=== PATIENT | female | born 1990 | race Caucasian/White ===

== ENCOUNTER 2021-06-01 09:17 | Day surgery (SDC) | payer OTHER ==
[2021-06-01] VITALS (189 sets, daily range): BP systolic 77–129; BP diastolic 46–108
--- NOTE | 2021-06-01 09:00 | NUR ---
PATIENT AMBULATORY TO ROOM CONSENT OBTAINED. VITAL SIGNS OBTAINED. DR GERRADO NOTIFIED. NEW ORDERS RECEIVED. ADMISSION ASSESSMENT COMPLETED AT THIS TIME. IV ESTABLISHED. ORIENTED TO ROOM AND UNIT, call light in reach. will continue to monitor.
[2021-06-01 09:42] LABS: HEMATOCRIT 39.4 % (37.0-47.0); HEMOGLOBIN 12.9 g/dl (12.0-16.0); MEAN CELL VOLUME 97.8 fL CALC (80.0-100.0); MEAN CORPUSCULAR HGB CONC 32.7 g/dL CAL (32.0-36.0); NEUT# 1.79 thou/uL (2.00-7.15); RED BLOOD COUNT 4.03 mill/uL (4.20-5.60); RED CELL DISTRI WIDTH 12.8 % (11.5-15.5)
[2021-06-01 09:54] LABS: ALBUMIN 4.2 g/dL (3.2-5.0); ALKALINE PHOSPHATASE 87 u/l (38-126); ANION GAP 13 (6-22 (CALC)); BILIRUBIN, TOTAL 0.3 mg/dL (0.0-1.4); BUN 14 mg/dL (7-17); BUN/CREATININE RATIO 21 (12-20 (CALC)); CARBON DIOXIDE 27 mmol/l (22-30); CHLORIDE 102 mmol/l (95-108); CREATININE 0.7 mg/dL (0.5-1.0); GFR > 60 ML/MIN (>=60 (CALC)); GFR FOR AFR.AMER. > 60 ML/MIN (>=60 (CALC)); POTASSIUM 4.3 mmol/l (3.5-5.1); SGOT/AST 24 u/l (14-36); SODIUM 138 mmol/l (137-146); TOTAL PROTEIN 7.1 g/dL (6.3-8.2)
--- NOTE | 2021-06-01 10:30 | NUR ---
DR GERARDO AT BEDSIDE AT THIS TIME.
--- NOTE | 2021-06-01 11:50 | NUR ---
Induction Note Patient to [facility] procedure room. Time out performed at 1150. Patient placed on monitors, Alejo hugger, bilateral wrist restraints applied for ET tube protection. Versed 5mg given IV push at 1151 Tourniquet applied to RIGHT arm Lidocaine 100mg given at 1152 IV push followed by Rocoronium 10mg at 1152 IV push and held for 90 seconds. Propofol bolus of 150mg given at 1153 IV push. Succinylcholine 80mg given IV push at 1154. Smooth intubation with 7.5 ETT. Positive CO2. Positive Auscultation for air exchange. Patient placed on ventilator for spontaneous ventilation. Placed on Propofol IV drip at 1155. OG inserted. Positive air on auscultation. Positive gastric content. Stomach washed at this time. Naltrexone 75mg given via OG tube with Clonidine 0.2mg given via OG Tube. OG clamped for 45 minutes. Will monitor patient for symptoms of withdrawal and adjust propfol accordingly.
--- NOTE | 2021-06-01 12:45 | NUR ---
OG open note OG open at this time. Gastric content draining into drainage bag. OG to drain for 45 minutes. Propofol will be titrated down based on patient.
--- NOTE | 2021-06-01 13:30 | NUR ---
OG close note Stomach washed at this time. Naltrexone 50 mg with Clonidine 0.2 mg via OG tube. OG will be clamped for 45 minutes.
--- NOTE | 2021-06-01 15:00 | NUR ---
OG close note Stomach washed at this time. Naltrexone 12.5 mg with Clonidine 0.2 mg via OG tube. OG will be clamped for 45 minutes.
--- NOTE | 2021-06-01 17:55 | NUR ---
Extubation note Closing medications given Benadryl 50mg IV push, Decadron 10mg IV push,Magnesium 4 grams IV, Zofran 8mg IV push, Octreotide 100mcg SC. Stomach washed out prior to extubation. Suctioned gastric content. OG removed. Patient extubated. Propofol Discontinued. Wrist restraints removed. Alejo hugger Removed. See [facility] Moderate sedate recovery record for further notes and assessment.
--- NOTE | 2021-06-01 18:15 | NUR ---
PATIENT TO MED SURG VIA BED
--- NOTE | 2021-06-01 18:40 | NUR ---
PT ARRIVED TO [facility] ROOM 285 VIA BED ACCOMPAINED BY [facility] STAFF. VITALS OBATINED. VSS. NO SIGNS OF ANY DISTRESS. ALL SAFTEY PRECAUTIONS IN PLACE WITH CALL LIGHT IN REACH AND BED ALARM ACTIVE
--- NOTE | 2021-06-01 18:45 | NUR ---
RECEIVED REPORT FROM LEWIS RITTER.
--- NOTE | 2021-06-01 20:20 | NUR ---
PT RESTLESS; A&O X2. EVEN AND UNLABORED RESPIRATIONS; CLEAR LUNG SOUNDS UPON AUSCULTATION. HYPOACTIVE BOWEL SOUNDS X4 QUADRANTS. IV SITES HEALTHY AND PATENT. PT AGITATED; PT C/O NAUSEA; ATIVAN AND PHENERGAN PER EMAR. PT C/O BEING COLD; LAUREL HUGGER PROVIDED. BED ALARM AND SAFETY PRECAUTIONS IN PLACE. CALL LIGHT WITHIN REACH.
--- NOTE | 2021-06-01 22:55 | NUR ---
PT IS REALLY COMBATIVE; UNABLE TO FIND A COMFORTABLE POSITION TO SLEEP. PT RESTLESS; PT PULL OUT #18G ON LEFT HAND; CATETHER IS INTACT. ADMINISTERED SCHEDULE MEDICATION PER EMAR. BED ALARM AND SAFETY PRECAUTIONS IN PLACE. CALL LIGHT WITHIN REACH.
--- NOTE | 2021-06-02 00:15 | NUR ---
PT IN BED UNABLE TO FIND A COMFORTABLE POSITION. ORAL FLUIDS OFFERED; PT DRINKING WITH NO SWALLOWING PROBLEMS. BED ALARM AND SAFETY PRECAUTIONS IN PLACE. CALL LIGHT WITHIN REACH.
[2021-06-02 03:48] VITALS: BP 113/76
--- NOTE | 2021-06-02 04:00 | NUR ---
PT RESTLESS. ADMINISTERED SCHEDULED MEDICATIONS PER EMAR. BED ALARM AND SAFETY PRECAUTIONS IN PLACE WITH CALL LIGHT IN REACH.
[2021-06-02 05:42] LABS: HEMOGLOBIN 13.8 g/dl (12.0-16.0); IMMATURE GRANULOCYTES 0.1 % (0.0-5.0); MEAN CORPUSCULAR HGB 31.9 pG CALC (26.0-32.0); MEAN CORPUSCULAR HGB CONC 32.9 g/dL CAL (32.0-36.0); NEUT# 8.27 thou/uL (2.00-7.15); RED BLOOD COUNT 4.33 mill/uL (4.20-5.60)
[2021-06-02 06:14] LABS: ALBUMIN 4.1 g/dL (3.2-5.0); ALKALINE PHOSPHATASE 105 u/l (38-126); ANION GAP 13 (6-22 (CALC)); BUN 16 mg/dL (7-17); BUN/CREATININE RATIO 24 (12-20 (CALC)); CARBON DIOXIDE 23 mmol/l (22-30); CHLORIDE 106 mmol/l (95-108); CREATININE 0.6 mg/dL (0.5-1.0); GFR > 60 ML/MIN (>=60 (CALC)); GFR FOR AFR.AMER. > 60 ML/MIN (>=60 (CALC)); MAGNESIUM 2.2 mg/dL (1.6-2.3); POTASSIUM 4.1 mmol/l (3.5-5.1); SGOT/AST 27 u/l (14-36); SODIUM 138 mmol/l (137-146); TOTAL PROTEIN 6.9 g/dL (6.3-8.2)
[2021-06-02 06:15] LABS: BILIRUBIN, TOTAL 0.6 mg/dL (0.0-1.4)
--- NOTE | 2021-06-02 07:35 | NUR ---
REPORT RECEIVED FROM VENKAT VÁZQUEZ. PATIENT IS SLEEPING WITH NO DISTRESS NOTED. CALL LIGHT IN REACH.
--- NOTE | 2021-06-02 09:59 | NUR ---
PATIENT STILL SLEEPING ON HER LEFT SIDE IN BED WITH NO DISTRESS NOTED. CALL LIGHT IN REACH.
[2021-06-02 11:15] VITALS: BP 110/59
--- NOTE | 2021-06-02 11:17 | NUR ---
ASSESSMENT DONE. PATIENT IS ALERT AND ORIENT X2 BUT DROWSY. RESPS EVEN AND UNLABORED. PATIENT IS SWEATING. PATIENT TEMP 100.2 MEDICATED WITH TYLENOL. AM MEDICATIONS GIVEN PER ORDER. PATIENT TOOK SIPS OF JUICE. CALL LIGHT IN REACH.
--- NOTE | 2021-06-02 12:00 | NUR ---
PATIENT IS RESTLESS IN BED. PATIENT KEEPS YELLING OUT NAMES. PATIENT STATED SHE FEELS BAD SHE IS HAVING LOTS OF WITHDRAWALS. MEDICATED PATIENT WITH ATIVAN IV. PATIENT REFUSED LUNCH. PATIENT TOOK SIPS OF WATER. PATIENT DENIES ANY OTHER NEEDS. CALL LIGHT IN REACH.
--- NOTE | 2021-06-02 15:01 | NUR ---
PATIENT IS SLEEPING IN BED WITH NO DISTRESS NOTED. CALL LIGHT IN REACH.
--- NOTE | 2021-06-02 16:09 | NUR ---
HEATER ENGINEER HELPER SET PATIENT FOR A SHOWER AND AT SIDE FOR ASSISTANCES.
[2021-06-02 16:23] VITALS: BP 111/54
--- NOTE | 2021-06-02 17:37 | NUR ---
Discharge instructions given. Patient verbalizes understanding of same. Discharged in stable condition via Wheelchair to Home with [facility] staff. All belongings sent with pt.
== END 2021-06-02 17:37 | disposition home or self-care (01) | DRG 897 ==
LOC: ANR 09:17 → MS2 09:18 → ANR 12:46
PROVIDERS: ATTEND Anesthesiology
DX: F11.20 Opioid dependence, uncomplicated (principal)
CPT/HCPCS: J2060; J2354